=== PATIENT | male | born 1975 | race African-American/Black ===

== ENCOUNTER 2022-09-02 19:35 | Inpatient (IN) | payer SELFPAY ==
[~2022-09-02] VITALS: Ht 190.5 cm; Wt 75.5 kg
[2022-09-02] MEDS ORDERED: SODIUM CHLORIDE 0.9% 1,000 ML IV ONE (20:30)
[2022-09-02] MEDS ORDERED: KETOROLAC 15MG/ML VIAL IV ONE (20:30)
[2022-09-02 21:04] LABS: BASOPHILS % 0.9 % (0.0-2.0); EOSINOPHILS % 0.1 % (0.0-5.0); HEMATOCRIT. 26.8 % (42.0-52.0); HEMOGLOBIN. 9.1 g/dL (14.0-18.0); LYMPHOCYTES % 35.3 % (20.0-50.0); MEAN CORPUSCULAR HEMOGLOBIN 30.7 pg (28.0-32.0); MEAN CORPUSCULAR VOLUME 90.4 fL (80.0-94.0); MEAN PLATELET VOLUME 7.1 fl (7.4-10.4); MONOCYTES % 6.2 % (2.0-8.0); NEUTROPHILS % 57.5 % (40.0-76.0); PLATELET 266 x1000/uL (130-400); RED BLOOD CELL COUNT 2.97 mill/uL (4.7-6.1); RED CELL DISTRIBUTION WIDTH 19.8 % (11.6-14.6)
[2022-09-02 21:10] LABS: CHLORIDE 113 mEq/L (98-107)
[2022-09-02 21:17] LABS: ETHANOL BLOOD < 10 mg/dL
[2022-09-02] MEDS ORDERED: LEVOFLOXACIN 750MG PREMIX 150 ML IV ONE (22:15)
[2022-09-02] MEDS ORDERED: METRONIDAZOLE 500 MG PREMIX 100 ML IV ONE (22:15)
[2022-09-02] MEDS ORDERED: SODIUM CHLORIDE 0.9% 1000ML BAG (SEPSIS BOLUS) IV ONE (22:15)
[2022-09-03] MEDS ORDERED: CEFTRIAXONE 1GM PREMIX 50 ML IV SCH (00:15)
[2022-09-03] MEDS ORDERED: ONDANSETRON HCL 4MG/2ML INJ IV PRN (00:15)
[2022-09-03] MEDS ORDERED: KETOROLAC 15MG/ML VIAL IV PRN (00:15)
[2022-09-03] MEDS ORDERED: IPRATROPIUM/ALBUTEROL 0.5-3(2.5)MG/3ML NEB NEB PRN (00:15)
[2022-09-03] MEDS ORDERED: CLONIDINE 0.1MG TABLET PO PRN (00:15)
[2022-09-03] MEDS ORDERED: ACETAMINOPHEN 325MG TABLET PO PRN ×2 (00:15)
[2022-09-03 00:55] VITALS: BP 121/73
[2022-09-03 01:00] VITALS: BP 115/74
[2022-09-03] MEDS ORDERED: AZITHROMYCIN 250 MG in DEXT 5% WATER 250 ML IV SCH (01:00)
[2022-09-03] MEDS ORDERED: SODIUM POLYSTYRENE SULFONATE 15 G/60 ML BOT PO NR (01:00)
[2022-09-03] MEDS ORDERED: AZITHROMYCIN 500MG in DEXTROSE 5% WATER 250ML IV SCH ×2 (01:00→22:00)
[2022-09-03] MEDS: MORPHINE SULFATE 2 MG/ML CPJ (NOT FOR IM USE) IV PRN ×2 (01:48→08:06)
[2022-09-03] MEDS ORDERED: NALOXONE HCL 1 MG/ML 2ML VIAL IV PRN (02:00)
[2022-09-03] MEDS ORDERED: NALOXONE HCL 0.4MG/ML VIAL IV PRN (02:15)
[2022-09-03] MEDS ORDERED: OXYC-105 MT (02:20)
[2022-09-03] MEDS ORDERED: ALPR1TAB2 MT (02:20)
[2022-09-03] MEDS ORDERED: DEXTROSE 50% WATER 50ML SYRINGE IV PRN (03:45)
[2022-09-03 04:00] VITALS: BP 112/68
[2022-09-03 04:04] LABS: CLARITY URINE CLEAR (CLEAR); COLOR URINE DARK YELLOW (YELLOW); KETONES URINE NEGATIVE (NEGATIVE); LEUKOCYTE ESTERASE URINE TRACE (NEGATIVE); NITRITE URINE NEGATIVE (NEGATIVE); OCCULT BLOOD URINE NEGATIVE (NEGATIVE); PH URINE 5.5 (4.5-8.0); PROTEIN URINE 1+ (NEGATIVE); SPECIFIC GRAVITY URINE 1.016 (1.005-1.030)
[2022-09-03 04:23] LABS: *AMPHETAMINES SCREEN URINE NEGATIVE (NEGATIVE); *BARBITURATES SCREEN URINE NEGATIVE (NEGATIVE); *BENZODIAZEPINES SCREEN URINE PRESUMTIVE POSITIVE (NEGATIVE); *COCAINE SCREEN URINE NEGATIVE (NEGATIVE); CANNABINOID URINE SCREEN PRESUMTIVE POSITIVE (NEGATIVE); METHADONE URINE SCREEN NEGATIVE (NEGATIVE); OPIATES URINE SCREEN PRESUMTIVE POSITIVE (NEGATIVE); PHENCYCLIDINE URINE SCREEN NEGATIVE (NEGATIVE)
[2022-09-03 04:57] LABS: HEPATITIS B SURFACE ANTIGEN NEGATIVE
[2022-09-03 04:59] LABS: TOTAL IRON BINDING CAPACITY 274 ug/dL (250-450)
[2022-09-03] MEDS ORDERED: CEFTRIAXONE 1,000 MG in DEXTROSE 5% WATER 50 ML IV SCH (05:00)
[2022-09-03 05:01] LABS: HAPTOGLOBIN < 8 mg/dL (30-200); VITAMIN B12 SERUM 296 pg/mL (211-911)
[2022-09-03 05:33] LABS: FERRITIN 3764 ng/mL (22-322)
[2022-09-03] MEDS ORDERED: BLOOD SUGAR DIAGNOSTIC STRIP TEST SCH (06:40)
[2022-09-03] MEDS ORDERED: LACTULOSE 20G/30ML UDC PO NR (06:45)
[2022-09-03 08:05] VITALS: BP 102/54
[2022-09-03 08:06] VITALS: BP 102/54
[2022-09-03] MEDS ORDERED: AMLODIPINE 10MG TABLET PO SCH (09:00)
[2022-09-03] MEDS ORDERED: PANTOPRAZOLE SODIUM 40 MG/VIAL IV SCH (09:00)
[2022-09-03] MEDS ORDERED: HYDROCODONE/ACETAMINOPHEN 7.5/325MG TABLET PO PRN (10:00)
[2022-09-03] MEDS ORDERED: HYDROCODONE/ACETAMINOPHEN 5/325MG TABLET PO PRN (10:00)
[2022-09-03] MEDS ORDERED: SODIUM CHLORIDE 0.9% 1,000 ML IV SCH (10:00)
== END 2022-09-03 11:10 | disposition left against medical advice (07) | DRG 812 ==
LOC: ER 19:35 → MICUSO 22:15 → EDBEDREQ 22:24 → 7EST 09-03 01:09
PROVIDERS: ADMIT Internal Medicine; ATTEND Internal Medicine
DX: T47.2X1A Poisoning by stimulant laxatives, accidental (unintentional), initial encounter (principal); G92.8 Other toxic encephalopathy; D57.00 Hb-SS disease with crisis, unspecified; J18.9 Pneumonia, unspecified organism; Z20.822 Contact with and (suspected) exposure to COVID-19; E87.5 Hyperkalemia; Z53.29 Procedure and treatment not carried out because of patient's decision for other reasons; F17.200 Nicotine dependence, unspecified, uncomplicated; Y92.89 Other specified places as the place of occurrence of the external cause
CPT/HCPCS: 36415; 71045; 80053; 80305; 80307; 80320; 80329; 81003; 82140; 82248; 82570; 82607; 82728; 82746; 83010; 83036; 83540; 83550; 83605; 83615; 83735; 83880; 84145; 84300; 84484; 85025; 85044; 85660; 86803; 87340; 87426; 93005; 99285; C9113; C9803; J0456; J0696; J1885; J2270; J7030; J7060; G0480